=== PATIENT | male | born 1990 | race African-American/Black ===

== ENCOUNTER 2017-09-17 15:33 | Emergency (ER) | payer SELFPAY ==
[~2017-09-17] VITALS: Ht 172.7 cm; Wt 81.8 kg
[2017-09-17] MEDS ORDERED: IBUPROFEN 800 MG TABLET PO ONE (16:30)
[2017-09-17 17:59] VITALS: BP 128/74
== END 2017-09-17 17:59 | disposition home or self-care (01) ==
LOC: EMS 15:34
DX: S93.402A Sprain of unspecified ligament of left ankle, initial encounter (principal); F12.90 Cannabis use, unspecified, uncomplicated; X50.1XXA Overexertion from prolonged static or awkward postures, initial encounter; Y93.67 Activity, basketball; Y92.89 Other specified places as the place of occurrence of the external cause; Y99.8 Other external cause status
CPT/HCPCS: 99284

== ENCOUNTER 2020-10-29 10:29 | Emergency (ER) | payer OTHER ==
[~2020-10-29] VITALS: Ht 172.7 cm; Wt 81.5 kg
[2020-10-29 10:30] VITALS: BP 118/71
[2020-10-29] MEDS ORDERED: ACETAMINOPHEN 500 MG TABLET PO ONE (11:30)
[2020-10-29 11:36] LABS: COVID AG,FIA SOURCE NASOPHARYNGEAL
== END 2020-10-29 12:46 | disposition home or self-care (01) ==
LOC: EMS 10:57
DX: U07.1 COVID-19 (principal); S16.1XXA Strain of muscle, fascia and tendon at neck level, initial encounter; S39.012A Strain of muscle, fascia and tendon of lower back, initial encounter; V49.9XXA Car occupant (driver) (passenger) injured in unspecified traffic accident, initial encounter; Y93.89 Activity, other specified; Y92.89 Other specified places as the place of occurrence of the external cause; Y99.8 Other external cause status
CPT/HCPCS: 72100; 72125; 99284; Z7502; Z7610